=== PATIENT | female | born 1960 | race Caucasian/White ===

== ENCOUNTER → 2016-12-08 | Outpatient (CLI) | payer BC ==
[~2016-12-08] MED LIST: ALBINS INH; ALBU1AER9 INH; B-CO1CAP3 PO; BENZ1CAP90 PO; CETI10TA84 PO; FEXO1TAB49 PO; FLUT50SP14 NAE; FLVHFA110 INH; HYDC25 PO; MONT1TAB3 PO; NRN/100 PO; NRN300 PO; OMEG10007 PO; PRLSR20 PO; PRM/45 PO; PRM9 PO; PSYL55.43 PO; VALA500T60 PO
== END | disposition home or self-care (01) ==
LOC: C.PATHSPEC 17:51
PROVIDERS: ATTEND Urology
DX: R31.29 Other microscopic hematuria (principal)

== ENCOUNTER → 2016-12-10 | Outpatient (CLI) | payer BC ==
[~2016-12-10] MED LIST changes: +OPTIRAY 320 IV PRN
--- NOTE | 2016-12-11 22:53 | DIAGNOSTIC IMAGING REPORT ---
CT OF THE ABDOMEN AND PELVIS WITH AND WITHOUT CONTRAST HEMATURIA PROTOCOL CLINICAL HISTORY: Microscopic hematuria. Frequent urination. COMPARISON STUDY: CT of the abdomen and pelvis June 22, 2014. TECHNIQUE: Unenhanced and split bolus phase imaging of the abdomen and pelvis was performed. Injection of 93 cc of Optiray 320 IV was uneventful. In addition, delayed phase imaging through the pelvis was performed for improved bladder opacification. CT DOSE: 517.94 mGycm FINDINGS: No renal, ureteral or bladder calculi are identified. There is no hydronephrosis or hydroureter. There are no solid renal lesions. Opacification of the collecting systems and each renal pelvis is suboptimal on this exam. This study has decreased sensitivity for the detection of upper tract urothelial lesions. The mid to distal ureters as well as the bladder are unremarkable. The liver, spleen, adrenal glands and pancreas are normal. There is no biliary or pancreatic ductal dilatation. No enlarged abdominal or pelvic lymph nodes are present. Skeletal structures are unremarkable. There is colonic diverticulosis without evidence for acute diverticulitis. The appendix is surgically absent. IMPRESSION: 1. No urinary calculi or hydronephrosis. No solid renal lesions. 2. Suboptimal opacification of the collecting systems and each renal pelvis. This study has decreased sensitivity for the detection of upper tract urothelial lesions but none are identified. Electronically signed by: Jack Choudhury M.D. 12/11/2016 10:51 PM Dictated Date/Time: 12/10/2016 3:53 PM
== END | disposition home or self-care (01) ==
LOC: C.CTS 15:22
PROVIDERS: ATTEND Urology
DX: R31.29 Other microscopic hematuria (principal)

== ENCOUNTER → 2017-03-25 | Outpatient (CLI) | payer BC, OTHER ==
[~2017-03-25] MED LIST changes: -OPTIRAY 320 IV PRN
--- NOTE | 2017-03-25 13:58 | DIAGNOSTIC IMAGING REPORT ---
LEFT FOOT MIN 3 VIEWS CLINICAL HISTORY: LEFT FOOT PAIN pain COMPARISON: None. DISCUSSION: The bones and joint spaces appear intact. There is no evidence of fracture, dislocation or bony disease. . Small heel spur. Bone alignment is anatomic throughout. No abnormal periosteal reaction. IMPRESSION: Very small heel spur. Otherwise negative study Electronically signed by: Malik Hartley M.D. 03/25/2017 1:57 PM Dictated Date/Time: 03/25/2017 1:57 PM
== END | disposition home or self-care (01) ==
LOC: C.RDSM 14:14
PROVIDERS: ATTEND Physician Assistant
DX: M21.619 Bunion of unspecified foot (principal)

== ENCOUNTER → 2017-03-27 | Outpatient (CLI) | payer BC | END | disposition home or self-care (01) | LOC: C.PAPS 16:03 | PROVIDERS: ATTEND Physician Assistant | DX: Z01.419 Encounter for gynecological examination (general) (routine) without abnormal findings (principal) ==

== ENCOUNTER → 2017-03-27 | Outpatient (CLI) | payer BC | END | disposition home or self-care (01) | LOC: C.LABSPEC 15:49 | PROVIDERS: ATTEND Physician Assistant | DX: L29.8 Other pruritus (principal) ==

== ENCOUNTER → 2017-04-16 | Outpatient (CLI) | payer BC ==
--- NOTE | 2017-04-16 14:09 | DIAGNOSTIC IMAGING REPORT ---
RIGHT SHOULDER 3 VIEWS HISTORY: BILATERAL SHOULDER PAIN Right COMPARISON: Right shoulder 11/14/2015. FINDINGS: There is no fracture or dislocation. The right clavicle is intact. 4 mm calcification at the distal supraspinatus tendon. No radiopaque foreign bodies. IMPRESSION: No fractures. Mild supraspinatus calcific tendinitis. Electronically signed by: Ashwin Tabor M.D. 04/16/2017 2:08 PM Dictated Date/Time: 04/16/2017 2:07 PM
--- NOTE | 2017-04-16 14:11 | DIAGNOSTIC IMAGING REPORT ---
LEFT SHOULDER 3 VIEWS HISTORY: BILATERAL SHOULDER PAIN COMPARISON: Left shoulder 11/14/2015. FINDINGS: There is no fracture or dislocation. The left clavicle is intact. 4 mm calcification at the distal supraspinatus tendon. No radiopaque foreign bodies. Minor joint space narrowing and tiny marginal osteophytes at the AC joint consistent with degenerative change. This remains unchanged. IMPRESSION: No fractures. Mild supraspinatus calcific tendinitis. Electronically signed by: Ashwin Tabor M.D. 04/16/2017 2:10 PM Dictated Date/Time: 04/16/2017 2:08 PM
== END | disposition home or self-care (01) ==
LOC: C.RDSM 13:17
PROVIDERS: ATTEND Physician Assistant
DX: M25.511 Pain in right shoulder (principal); M25.512 Pain in left shoulder

== ENCOUNTER → 2017-05-18 | Outpatient (CLI) | payer BC ==
[~2017-05-18] MED LIST changes: +OPTIRAY 320 IV PRN
--- NOTE | 2017-05-18 11:19 | DIAGNOSTIC IMAGING REPORT ---
CT UROGRAM CLINICAL HISTORY: Hematuria. Left lower quadrant abdominal pain. COMPARISON STUDY: Abdominal CT dated 12/10/2016. TECHNIQUE: Before and following the IV administration of 119 cc of Optiray 320, CT urogram of the abdomen and pelvis is performed from the lung bases to the proximal femora. Images are reviewed in the axial, sagittal, and coronal planes. IV contrast was administered without complication. CT DOSE: 1346.34 mGy.cm FINDINGS: Lung bases: The heart is normal in size and without pericardial effusion. Calcified granulomas are noted at both lung bases. The lung bases are otherwise clear. Liver: The contrast-enhanced liver is top normal in size and demonstrates diffusely diminished attenuation consistent with hepatic steatosis. There is no intrahepatic biliary ductal dilatation. The hepatic veins and portal veins are patent. Gallbladder: Unremarkable. Spleen: Normal in size and attenuation. Pancreas: Unremarkable. Adrenal glands: Unremarkable. Kidneys and ureters: The contrast enhanced kidneys are normal in size and without hydronephrosis. There are no renal calculi identified on the unenhanced images. The kidneys enhance and excrete symmetrically. There is no enhancing renal cortical mass lesion identified. There is no evidence of urothelial lesion within the renal pelvis bilaterally or along the course of either ureter. The proximal ureters are not well opacified. Abdominal vasculature: The abdominal aorta is normal in course and caliber noting scattered foci of atherosclerotic calcification. Bowel: The small bowel and colon are normal in course and caliber. There is mild to moderate sigmoid diverticulosis without CT evidence of acute diverticulitis. Colonic fecal retention is observed. The appendix is not identified and reported surgically absent. Peritoneum: There is no intraperitoneal free air or abdominal ascites. There is a small fat-containing umbilical hernia. Lymphadenopathy: None. Pelvic viscera: The bladder is normal as visualized. The uterus is surgically absent. No adnexal lesion is seen. Skeletal structures: The skeletal structures are osteopenic. No lytic or blastic bony lesions are seen. There is mild lumbosacral spondylosis. Sclerotic change is present in the hips. IMPRESSION: 1. There are no acute infectious or inflammatory findings in the abdomen or pelvis. 2. No renal calculi are identified. 3. Unremarkable CT urogram. 4. Hepatic steatosis. 5. Mild to moderate sigmoid diverticulosis without CT evidence of acute diverticulitis. Electronically signed by: Gera Garcia M.D. 05/18/2017 11:18 AM Dictated Date/Time: 05/18/2017 11:12 AM
== END | disposition home or self-care (01) ==
LOC: C.CTS 10:28
PROVIDERS: ATTEND Physician Assistant
DX: R10.32 Left lower quadrant pain (principal); Z87.19 Personal history of other diseases of the digestive system; R31.29 Other microscopic hematuria

== ENCOUNTER → 2017-07-10 | Outpatient (CLI) | payer BC ==
[~2017-07-10] MED LIST changes: -OPTIRAY 320 IV PRN
--- NOTE | 2017-07-10 13:48 | DIAGNOSTIC IMAGING REPORT ---
CERVICAL SPINE 4 OR 5 VIEWS CLINICAL HISTORY: NECK PAIN COMPARISON STUDY: No previous studies for comparison. FINDINGS: There is mild prevertebral soft tissue widening. There are moderate multilevel degenerative changes. There is straightening of the normal cervical lordosis. No acute fractures or traumatic subluxations are visualized. IMPRESSION: 1. No acute fractures 2. Moderate multilevel degenerative change 3. Straightening of normal cervical lordosis 4. Nonspecific prevertebral soft tissue widening Electronically signed by: Juvenal Veliz M.D. 07/10/2017 1:47 PM Dictated Date/Time: 07/10/2017 1:46 PM
== END | disposition home or self-care (01) ==
LOC: C.RDSM 13:32
PROVIDERS: ATTEND Family Medicine
DX: M54.2 Cervicalgia (principal)

== ENCOUNTER → 2017-08-12 | Day surgery (SDC) | payer BC ==
[2017-07-16 14:08] VITALS: Ht 152.4 cm; Wt 84.1 kg
[~2017-08-12] VITALS: Ht 152.4 cm; Wt 84.1 kg
[~2017-08-12] MED LIST changes: -CETI10TA84 PO; +IOPAMIDOL INJ 61% 15 ML VIAL ONE; +LIDOCAINE HCL 1% MPF 5 ML VIAL ONE; -NRN/100 PO; -PRM/45 PO; +SODIUM CHLORIDE 0.9% INJ 10 ML VIAL ONE
--- NOTE | 2017-08-12 14:58 | History & Physical Bridge - [place] ---
H&P Re-Evaluation Bridge Note: I have examined the patient, reviewed the History & Physical and in the interval since the performance of the History & Physical I have noted the following changes of clinical significance: No changes noted
--- NOTE | 2017-08-12 15:21 | Discharge Instructions ---
Discharge Instructions Date of Service Aug 12, 2017. Visit Reason for Visit: Lumbar Radiculopathy Discharge Discharge Diagnosis / Problem: left leg pain Discharge Goals Goal(s): Decrease discomfort, Improve function Activity Recommendations Activity Limitations: resume your previous activity Anesthesia . Post Anesthesia Instructions: If you have had General Anesthesia or IV Sedation: * Do not drive today. * Resume driving when surgeon permits. * Do not make important decisions or sign legal documents today. * Call surgeon for: 1. Temperature elevations greater than 101 degrees F. 2. Uncontrollable pain. 3. Excessive bleeding. 4. Persistent nausea and vomiting. 5. Medication intolerance (nausea, vomiting or rash). * For nausea and vomiting use only clear liquids such as: tea, soda, bouillon until nausea subsides, then gradually increase diet as tolerated. * If you have any concerns or questions, call your surgeon's office. If physician is unavailable and it is an emergency, call 911 or go to the nearest emergency room. . Diet Recommendations Recommended Home Diet: resume previous diet Procedures Procedures Performed: LUMBAR EPIDURAL STEROID INJECTION Pending Studies Studies pending at discharge: no Medical Emergencies . Who to Call and When: Medical Emergencies: If at any time you feel your situation is an emergency, please call 911 immediately. . Non-Emergent Contact Non-Emergency issues call your: Specialist . . "Provider Documentation" section prepared by Brandon Mitchell. .
[2017-08-12 15:22] VITALS: BP 124/79; PULSE 66; TEMP 36.8; O2SAT 96
--- NOTE | 2017-08-12 21:41 | OPERATIVE REPORT ---
DATE OF OPERATION: 08/12/2017 PREOPERATIVE DIAGNOSIS: Lumbar disk disease with right lower extremity radiculopathy. POSTOPERATIVE DIAGNOSIS: Same. PROCEDURE: Right paramedian L5-S1 intralaminar epidural steroid injection under fluoroscopic guidance. INDICATIONS: The patient is a 56-year-old female who has had an epidural done in the past in October to address radicular pain down the leg. It recently returned and is problematic and functionally limiting to her. So, she presents today for an epidural steroid injection to provide her with relief. PHYSICAL EXAMINATION: GENERAL: Pleasant female seated comfortably in no apparent distress. MUSCULOSKELETAL: Lumbar paraspinal muscles were palpated and noted be nontender. She had normal lower extremity strength, intact sensation distally at the L4, L5, S1 dermatomes, maneuvers, negative seated straight leg raises. CONSENT: Verbal and written consent was obtained from the patient. Risks and benefits were reviewed. Risks include but are not limited to epidural hematoma, allergic reaction, and dural puncture. The patient wishes to proceed. PROCEDURE: The patient was taken back to the special procedures room of the [facility] where she was maintained in a prone position. Backside was cleansed with Betadine x3 and a dry sterile dressing was applied. Fluoroscope was used to identify the L5-S1 intralaminar space. Overlying skin on the left side was anesthetized with 4 mL of lidocaine 1% with a 25 gauge 1.5-inch needle with 4 mL of lidocaine and a gauge 3-1/2 inch Tuohy needle was then placed at the L5-S1 intralaminar space. It was advanced under lateral fluoroscopic guidance and loss of resistance was noted at a depth of 7 cm. Isovue-300 contrast 1 mL was injected which demonstrated epidural uptake pattern. She then underwent injection after negative aspiration of 40 mg of Depo-Medrol and 4 mL of preservative free sodium chloride. Injection was well tolerated and reproduced a familiar transient radicular sensation down the leg. DISPOSITION: 1. The patient is taken out into the discharge recovery area where she will be discharged home once discharge criteria have been met. 2. Follow up in the [facility] office in 2-4 weeks. I attest to the content of the Intraoperative Record and any orders documented therein. Any exception s are noted below.
== END | disposition home or self-care (01) ==
LOC: X.SURG 14:18
PROVIDERS: ATTEND Physical Medicine & Rehabilitation
DX: M54.16 Radiculopathy, lumbar region (principal); M50.90 Cervical disc disorder, unspecified, unspecified cervical region

== ENCOUNTER → 2017-11-12 | Outpatient (CLI) | payer BC ==
[~2017-11-12] MED LIST changes: -IOPAMIDOL INJ 61% 15 ML VIAL ONE; -LIDOCAINE HCL 1% MPF 5 ML VIAL ONE; -SODIUM CHLORIDE 0.9% INJ 10 ML VIAL ONE
[2017-11-12 16:58] LABS: URINE APPEARANCE CLEAR (CLEAR); URINE BILIRUBIN NEG (NEG); URINE COLOR YELLOW; URINE EPITHELIAL CELL AUTO 20-30 /lpf (0-5); URINE NITRITE NEG (NEG); URINE SPECIFIC GRAVITY 1.016 (1.000-1.030); UROBILINOGEN NEG (NEG)
[2017-11-12 17:02] LABS: MANUAL MICROSCOPIC REQUIRED? NO; REVIEW REQ? NO
== END | disposition home or self-care (01) ==
LOC: C.LABSPEC 16:15
PROVIDERS: ATTEND Physician Assistant
DX: R30.0 Dysuria (principal)

== ENCOUNTER → 2018-07-08 | Outpatient (CLI) | payer OTHER ==
[2018-07-08 18:18] LABS: BASO % 0.4 %; BASO ABS # 0.04 K/uL (0-0.2); EOS % 3.4 %; EOS ABS # 0.38 K/uL (0-0.5); HEMATOCRIT 37.6 % (37-47); IG# 0.02 K/uL (0.00-0.02); LYMPH % 35.3 %; LYMPH ABS # 3.93 K/uL (1.2-3.4); MEAN CELL VOLUME 91.7 fL (80-100); MEAN CORPUSCULAR HEMOGLOBIN 29.3 pg (25-34); MEAN CORPUSCULAR HGB CONC 31.9 g/dl (32-36); MEAN PLATELET VOLUME 10.4 fL (7.4-10.4); MONO % 7.1 %; MONO ABS # 0.79 K/uL (0.11-0.59); NEUT % 53.6 %; NEUT ABS # 5.97 K/uL (1.4-6.5); PLATELET COUNT 322 K/uL (130-400); RED CELL DISTRIBUTION WIDTH CV 14.6 % (11.5-14.5); RED CELL DISTRIBUTION WIDTH SD 49.6 fL (36.4-46.3); WHITE BLOOD COUNT 11.13 K/uL (4.8-10.8)
--- NOTE | 2018-07-08 18:34 | DIAGNOSTIC IMAGING REPORT ---
CT SCAN OF THE PELVIS WITHOUT IV CONTRAST CLINICAL HISTORY: Left lower quadrant abdominal/pelvic pain. COMPARISON STUDY: Pelvic CT dated 04/09/2018. TECHNIQUE: CT scan of the pelvis is performed from the pelvic inlet to the proximal femora. Images are reviewed in the axial, sagittal, and coronal planes. IV contrast was not administered for this examination. Note that the examination is suboptimal without oral and IV contrast. A dose lowering technique was utilized adhering to the principles of ALARA. CT DOSE: 481.29 mGy.cm FINDINGS: The bladder is decompressed and grossly unremarkable. The uterus is surgically absent. No adnexal lesion is seen. The visualized loops of small bowel and colon are normal in caliber. Post appendectomy change is noted in the right lower quadrant. There are scattered sigmoid diverticula without CT evidence of acute diverticulitis. There is no pelvic sidewall or inguinal lymphadenopathy. No free fluid is identified in the cul-de-sac. A small fat-containing umbilical hernia is noted. No calculi are identified in the distal ureters. The bony pelvis appears intact. Sclerotic degenerative change is noted in the sacroiliac joints. No lytic or blastic lesion is seen. The pelvic musculature is normal and symmetric. IMPRESSION: No acute abnormality is identified in the pelvis. Dictated: 07/08/2018 6:08 PM Transcribed: 07/08/2018 6:34 PM AD_[facility] Electronically signed by: Gera Garcia M.D. 07/08/2018 6:36 PM Dictated Date/Time: 07/08/2018 6:08 PM
[2018-07-08 18:41] LABS: ALBUMIN 3.7 gm/dl (3.4-5.0); ALT/SGPT 44 U/L (12-78); AST/SGOT 29 U/L (15-37); BLOOD UREA NITROGEN 17 mg/dl (7-18); CALCIUM 9.3 mg/dl (8.5-10.1); CARBON DIOXIDE 28 mmol/L (21-32); CREATININE 0.73 mg/dl (0.60-1.20); GLUCOSE 90 mg/dl (70-99); SODIUM 139 mmol/L (136-145)
[2018-07-08 18:42] LABS: ALKALINE PHOSPHATASE 73 U/L (45-117)
== END | disposition home or self-care (01) ==
LOC: C.CTS 17:32
PROVIDERS: ATTEND Family Medicine
DX: R10.9 Unspecified abdominal pain (principal)